=== PATIENT | female | born 1990 | race Caucasian/White ===

== ENCOUNTER 2017-07-27 20:00 | Emergency (ER) | payer OTHER ==
[~2017-07-27] VITALS: Ht 157.5 cm; Wt 68.0 kg
[2017-07-27] MEDS ORDERED: MINIPRESS5 MG PO (20:19)
[2017-07-27] MEDS ORDERED: ZOFRAN2 MG/1 ML PO (20:19)
[2017-07-27] MEDS ORDERED: LAMICTAL XR200 MG PO (20:19)
[2017-07-27] MEDS ORDERED: TRAZODONE HCL100 MG PO (20:19)
[2017-07-27] MEDS ORDERED: OXYBUTYNIN 5 MG5 M2 PO (20:20)
[2017-07-27] MEDS ORDERED: BENZTROPINE ME0.5 MG PO (20:20)
[2017-07-27] MEDS ORDERED: CLONAZEPAM 0.50.5 M1 PO (20:20)
[2017-07-27 21:03] LABS: URINE BILIRUBIN NEGATIVE (Negative); URINE BLOOD NEGATIVE (Negative); URINE CLARITY CLEAR; URINE COLOR YELLOW; URINE GLUCOSE-RANDOM NEGATIVE (Negative); URINE KETONES NEGATIVE (Negative); URINE LEUKOCYTES NEGATIVE (Negative); URINE NITRITE NEGATIVE (Negative); URINE PROTEIN NEGATIVE (Negative); URINE SPECIFIC GRAVITY 1.015 (1.005-1.030); URINE UROBILINOGEN 0.2 E.U./dl (0.2-1.0)
[2017-07-27 21:10] LABS: AMP/METHAMP Negative (Negative); BARBITURATES Negative (Negative); BENZODIAZEPINES Negative (Negative); COCAINE Negative (Negative); METHADONE Negative (Negative); OPIATES Negative (Negative); PCP Negative (Negative); THC POSITIVE (Negative)
[2017-07-27] MEDS ORDERED: CYCLOBENZAPRINE5 MG PO (21:56)
[2017-07-27] MEDS ORDERED: ACETAMINOPHEN-1 EAC1 PO (21:56)
[2017-07-27 22:06] VITALS: BP 112/84
== END 2017-07-27 22:07 | disposition home or self-care (01) ==
LOC: M.ERS 20:00
PROVIDERS: Emergency Medicine
DX: M62.838 Other muscle spasm (principal); F25.0 Schizoaffective disorder, bipolar type; F17.210 Nicotine dependence, cigarettes, uncomplicated

== ENCOUNTER 2019-01-02 09:56 | Emergency (ER) | payer OTHER ==
[~2019-01-02] VITALS: Ht 157.5 cm; Wt 62.8 kg
[~2019-01-02 09:56] MED LIST: ACETAMINOPHEN-1 EAC1 PO; BENZTROPINE ME0.5 MG PO; CLONAZEPAM 0.50.5 M1 PO; CYCLOBENZAPRINE5 MG PO; LAMICTAL XR200 MG PO; MINIPRESS5 MG PO; OXYBUTYNIN 5 MG5 M2 PO; TRAZODONE HCL100 MG PO; ZOFRAN2 MG/1 ML PO
[2019-01-02] MEDS ORDERED: BACTRIM DS TAB1 EACH PO (10:12)
[2019-01-02] MEDS ORDERED: KEFLEX500 M1 PO (10:12)
[2019-01-02 10:26] VITALS: BP 114/67
== END 2019-01-02 10:26 | disposition home or self-care (01) ==
LOC: M.ERS 09:56
DX: S70.362A Insect bite (nonvenomous), left thigh, initial encounter (principal); L03.116 Cellulitis of left lower limb; F25.0 Schizoaffective disorder, bipolar type; F17.210 Nicotine dependence, cigarettes, uncomplicated; W57.XXXA Bitten or stung by nonvenomous insect and other nonvenomous arthropods, initial encounter; Y93.89 Activity, other specified; Y92.89 Other specified places as the place of occurrence of the external cause; Y99.8 Other external cause status

== ENCOUNTER 2019-02-06 08:58 | Emergency (ER) | payer OTHER ==
[~2019-02-06] VITALS: Ht 157.5 cm; Wt 63.5 kg
[~2019-02-06 08:58] MED LIST changes: +BACTRIM DS TAB1 EACH PO; +KEFLEX500 M1 PO
[2019-02-06 10:40] VITALS: BP 138/74
== END 2019-02-06 10:40 | disposition home or self-care (01) ==
LOC: M.ERS 08:58
DX: S06.0X0A Concussion without loss of consciousness, initial encounter (principal); F25.0 Schizoaffective disorder, bipolar type; F17.210 Nicotine dependence, cigarettes, uncomplicated; V89.2XXA Person injured in unspecified motor-vehicle accident, traffic, initial encounter; Y93.89 Activity, other specified; Y92.89 Other specified places as the place of occurrence of the external cause; Y99.8 Other external cause status